=== PATIENT | female | born 1970 | race Caucasian/White ===

== ENCOUNTER 2018-06-28 15:00 | Outpatient (RCR) ==
--- NOTE | 2018-06-18 10:55 | RS.OPPTEV2 ---
Date of Note: 06/18/18 Visit #: 1 Date of Evaluation: 06/18/18 Payer Source: Insurance Surgery Performed?: No Treatment Diagnosis: cervicalgia History of Condition/Mechanism of Injury:: pt reports that neck pain began approx 1 month(approx 05/18/18) ago while cleaning a tanning bed at work and heard a "pop". Prior Level of Function.....Patient was independent with: ADL's, Self Care, Work /Vocation, Caregiving, Ambulation/Mobility, Community Integration/Access Functional Limitations: Sleep, Reaching, Carrying Current Subjective/complaints:: pt states that she is feeling better since finishing her steroids and beginning muscle relaxers, gabapentin and norco. States she continues to have radiating pain that is noticeable when meds are "wearing off". Treatment Side (optional): Right *Precautions: n/a Medical History Medical History: Hypertension, Arthritis Surgical History: Lumbar Spine Surgical History Comments:: lumbar fusion Smoking Status: Current some day smoker Diagnostic [facility]Imaging[facility] (have [facility] and requested Xray report) Hx Home Medications: gabapentin, "muscle relaxer", norco Patient's Goals: decrease neck pain Pain Assessment - Pain Description Pain Location: cervical pain radiating into RUE Pain Description: Radiating, Aching Current Pain Intensity: 4 Functional Outcome Measure Neck Disability Index: 12 - G Codes & Severity Modifier G Codes & Modifier: n/a Source of G Code score: n/a Observation - Observation Posture: Forward Head, Rounded Shoulders, Increased Thoracic Kyphosis Handedness: Right Gait - Gait Pattern General Gait Pattern Observation: No Deviations/Normal General Range of Motion: BUE WFL's. BLE WFL's Muscle Strength: LUE 5/5. RUE shld flex 4/5,elbow flex 4/5, ext 4+/5. BLE 5/5 - ROM Cervical Spine Range of Motion Limitations: Soft Tissue Tightness, Muscle Weakness, Pain Comments: Cervical ROM WFL's with pain with rotation to R as well as with ext. - Strength Cervical Extension: 4- Good- Cervical Flexion: 4- Good- Cervical Lateral Flexion: 3+ Fair+ Cervical Rotation: 3+ Fair+ - Special Tests Foraminal Distraction: Negative Foraminal Compression: Negative Left, Negative Right Palpation Palpation Findings: Tenderness, Trigger Point, Muscle Guarding Comments:: pt with tenderness and muscle guarding in cervical paraspinals, upper trap as well as trigger points in upper trap and proximal to the cervical thoracic junction. Sensation - Sensation Right Upper Extremity: Impaired Left Upper Extremity: Intact/Normal Right Lower Extremity: Intact/Normal Left Lower Extremity: Intact/Normal Comments: pt presents with pain and numbness and tingling in RUE from axilla to wrist in the C5/C6 distribution Balance - Sitting Balance Static Sitting Balance: Normal Dynamic Sitting Balance: Normal - Standing Balance Static Standing Balance: Normal Dynamic Standing Balance: Normal - Treatment Modality: Ultrasound Parameters/Method Applied: 1.5w/cm2 x 7 mins Treatment Area: R cervical paraspinal/upper trap Patient Position: Sitting - Heat/Cryotherapy Treatment: Hot Pack Comments:: cervical Interventions - Exercise/Activities/Manual Therapy Exercises/Activities: pt performed cervical retraction x 3, upper trap stretch x 1, corner stretch, scapular retraction x 5 reps Manual Therapy: NA HOME EXERCISE PROGRAM: pt given written HEP including: cervical retraction, upper trap stretch, scapular retraction, corner stretch - Charges Timed Code Treatment Minutes: 47 Total Treatment Time: 59 Procedures billed for this date of service:: eval low, ultrasound, hot pack EVALUATION COMPLEXITY LEVEL EVALUATION COMPLEXITY LEVEL: HISTORY: Low (HTN, OA), EXAM OF BODY SYSTEMS: Medium (pain, posture, strength, muscle tightness), CLINICAL PRESENTATION: Medium, CLINICAL DECISION MAKING: Low Assessment Assessment: pt presents with cervical pain radiating into RUE with decreased strength RUE, muscle tightness, trigger points and muscle guarding. Patient Education: Home Exercise Program, Education of Plan of Care Rehab Potential: Good Short Term Goals Goal #1: pt independent with initial HEP Goal to be met by: 07/09/18 Goal #2: pt rate pain < 4/10 with activity Goal to be met by: 07/09/18 Goal #3: Improve strength RUE 4+/5 Goal to be met by: 07/09/18 Goal #4: decreased tightness R upper trap to allow for decreased pain with ROM Goal to be met by: 07/09/18 Mcc Goals Goal #1: pt with no reports of radiating pain into RUE Goal to be met by: 07/30/18 Goal #2: pt report improved ability to perfrom job duties with less pain Goal to be met by: 07/30/18 Goal #3: Improvement on neck disability index to <10 Goal to be met by: 07/30/18 Plan - Treatment to be Provided Procedures: Therapeutic Exercises, Manual Therapy, Massage, Patient Education Modalities: Electrical Stimulation, Ultrasound/Phonophoresis, Class IV Laser, Cryotherapy, Hot Packs, Mechanical Traction - Treatment Plan Frequency: 2 X week Duration: 6 weeks ORDER # VISITS AND/OR THROUGH DATE: 07/30/18 - Treatment Code (1) Cervical pain Code(s): M54.2 - CERVICALGIA (2) Muscle tightness Code(s): M62.89 - OTHER SPECIFIED DISORDERS OF MUSCLE (3) Radicular pain in right arm Code(s): M79.2 - NEURALGIA AND NEURITIS, UNSPECIFIED
--- NOTE | 2018-06-20 16:09 | RS.OPPTDN ---
Subjective Date of Note: 06/20/18 Visit #: 2 Date of Evaluation: 06/18/18 Payer Source: Insurance Treatment Diagnosis: cervicalgia Current Subjective/complaints:: Patient reports she has less pain today, but numbness and tingling are worse and go down right UE to the dorsal surface of the right hand. Reports symptoms decreased following treatment. *Precautions: n/a Pain Assessment - Pain Description Pain Location: right traps, shoulder, and UE Current Pain Intensity: mild Other Comments regarding Pain:: Reports pain is low today, but numbness and tingling is worse today and radiates to the dorsal surface of the right hand. - Treatment Modality: Ultrasound Parameters/Method Applied: [id number] at 1.5w/cm2 to the right neck, traps, and shoulder joint. Patient Position: Sitting - Heat/Cryotherapy Treatment: Hot Pack ([id number] to the right neck and shoulder prior to US and EX. Patient in sitting. ) Interventions - Exercise/Activities/Manual Therapy Exercises/Activities: Assisted stretching into cervical lateral flexion. Scap retraction. Manually resisted isometric cervical retraction. Doorway stretch, 3 positions. AAROM of the right shoulder. Manually resisted right shoulder IR, ER, and empty can position. Total minutes of Exercise: 14mins Manual Therapy: NA HOME EXERCISE PROGRAM: pt given written HEP including: cervical retraction, upper trap stretch, scapular retraction, corner stretch. Isometric cervical retraction, added 3 position doorway stretch. - Charges Timed Code Treatment Minutes: 24mins Total Treatment Time: 44mins Procedures billed for this date of service:: HP, US, EX Assessment: Patient with increased radicular symptoms today, but reports feeling better after US. She will need to focus on postural correction exercises. Patient Education: Body/Joint mechanics, Home Exercise Program, Home Safety, Activity Modification Comments: Patient education of dx, postural mechanics, and HEP. 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 pain. Goal to be met by: 07/21/14 Plan PLAN OF CARE EXPIRES ON:: 07/30/18 ORDER # VISITS AND/OR THROUGH DATE: 07/30/18 PLAN: Continue modalities and progress postural correction exercises to reduce radicular symptoms and increase functional activity level.
--- NOTE | 2018-06-25 16:27 | RS.OPPTDN ---
Subjective Date of Note: 06/25/18 Visit #: 3 Date of Evaluation: 06/18/18 Payer Source: Insurance Treatment Diagnosis: cervicalgia Current Subjective/complaints:: Patient reports right neck and arm pain continues to bother her. She reports she has had difficulty with sleeping at night. Patient asks to try cervical traction as discussed during evaluation. *Precautions: n/a Pain Assessment - Pain Description Pain Location: right neck, upper trap, and down right UE to hand Pain Description: Aching Worst Pain Intensity: 8/10 Other Comments regarding Pain:: Following cervical traction patient reports aching pain in the right UE changed to numbness and tingling. - Treatment Modality: Ultrasound Parameters/Method Applied: [id number] at 1.5w/cm2 to the right cervical paraspinals and upper traps following mechanical traction. Patient Position: Sitting - Heat/Cryotherapy Treatment: Hot Pack ([id number] to the neck and right upper traps prior to cervical traction. Patient in sitting. ) - Traction Treatment Method: Mechanical, Intermittent, Cervical Patient Position: Supine Amount of Force Applied: 17-20# Hold Time: 35sec Rest Time: 5sec Duration of treatment: 20mins Interventions - Exercise/Activities/Manual Therapy Exercises/Activities: No exercise today. Patient continues HEP as instructed. Manual Therapy: NA HOME EXERCISE PROGRAM: pt given written HEP including: cervical retraction, upper trap stretch, scapular retraction, corner stretch. Isometric cervical retraction, added 3 position doorway stretch. - Charges Timed Code Treatment Minutes: 10mins Total Treatment Time: 45mins Procedures billed for this date of service:: HP, [place] mechanical, US Assessment: Patient reporting a change in right UE radicular symptoms following cervical traction. Patient Education: Education of diagnosis, Body/Joint mechanics, Home Safety, Activity Modification Comments: Advised patient to be prepared to us heat or ice this evening if radicular symptoms flair-up. Patient demonstrates compliance with HEP?: Yes Short Term Goals Goal #1: pt independent with initial HEP Goal to be met by: 07/09/18 Progress towards Goal:: Progressing Goal #2: pt rate pain < 4/10 with activity Goal to be met by: 07/09/18 Goal #3: Improve strength RUE 4+/5 Goal to be met by: 07/09/18 Goal #4: decreased tightness R upper trap to allow for decreased pain with ROM Goal to be met by: 07/09/18 Pickle Maker Goals Goal #1: pt with no reports of radiating pain into RUE Goal to be met by: 07/30/18 Goal #2: pt report improved ability to perfrom job duties with less pain Goal to be met by: 07/30/18 Goal #3: Improvement on neck disability index to <10 Goal to be met by: 07/30/18 Goal #4: Patient able to perform all ADL's and functional activties with min. pain. Goal to be met by: 07/21/14 Plan PLAN OF CARE EXPIRES ON:: 07/30/18 ORDER # VISITS AND/OR THROUGH DATE: 07/30/18 PLAN: Continue mechanical cervical traction to reduce pain and right UE radicular symptoms.
--- NOTE | 2018-06-28 16:34 | RS.OPPTDN ---
Subjective Date of Note: 06/28/18 Visit #: 4 Number of visits approved by Insurance: Pending Date of Evaluation: 06/18/18 Payer Source: Insurance Treatment Diagnosis: cervicalgia Current Subjective/complaints:: Reports the numbness and tingling in the R arm is constant. *Precautions: n/a Pain Assessment - Pain Description Pain Location: neck /R UE Pain Description: Radiating, Aching Current Pain Intensity: not rated - Heat/Cryotherapy Treatment: Hot Pack (20 mins. prior to ex,manual) Interventions - Exercise/Activities/Manual Therapy Exercises/Activities: Passive stretches to cervical in all directions,chin tucks /retraction,UT stretches. Total minutes of Exercise: 20 Manual Therapy: Occipital release ,manual intermittent cervical distraction in supine. Total minutes of Manual Therapy: 20 HOME EXERCISE PROGRAM: pt given written HEP including: cervical retraction, upper trap stretch, scapular retraction, corner stretch. Isometric cervical retraction, added 3 position doorway stretch. - Charges Timed Code Treatment Minutes: 40 Total Treatment Time: 60 Procedures billed for this date of service:: hp,ex,manual Assessment: Patient has good cervical flexibility in all directions ,but gets no relief from stretches or distraction today.She is compliant to HEP and attentive for her POC.She reports no change in the radiating after PT session today. Patient Education: Education of diagnosis, Body/Joint mechanics, Home Exercise Program, Home Safety, Activity Modification, Education of Plan of Care Patient demonstrates compliance with HEP?: Yes Short Term Goals Goal #1: pt independent with initial HEP Goal to be met by: 07/09/18 Progress towards Goal:: Progressing Goal #2: pt rate pain < 4/10 with activity Goal to be met by: 07/09/18 Progress towards Goal:: No Change Goal #3: Improve strength RUE 4+/5 Goal to be met by: 07/09/18 Progress towards Goal:: No Change Goal #4: decreased tightness R upper trap to allow for decreased pain with ROM Goal to be met by: 07/09/18 Progress towards Goal:: Progressing Mobile Application Developer Goals Goal #1: pt with no reports of radiating pain into RUE Goal to be met by: 07/30/18 Progress towards goal: No Change Goal #2: pt report improved ability to perfrom job duties with less pain Goal to be met by: 07/30/18 Goal #3: Improvement on neck disability index to <10 Goal to be met by: 07/30/18 Goal #4: Patient able to perform all ADL's and functional activties with min. pain. Goal to be met by: 07/21/14 Plan Dates of Mobile Application Developer Goals: 07/30/18 Expiration date of current Insurance Approval:: Pending PLAN: Cont . PT to reduce/eliminate neck and R UE pain.
--- NOTE | 2018-07-17 16:24 | RS.QUICKDC ---
Discharge from PT Date of Discharge: 07/17/18 Number of Visits: 4 Reason for Discharge: Patient attended 4 sessions and reported very little change in symptoms. Patient did not attend after that and has not called to reschedule.
== END 2018-07-17 23:59 ==
PROVIDERS: ATTEND Orthopaedic Surgery Orthopaedic Surgery of the Spine
DX: M54.2 Cervicalgia (principal); M62.89 Other specified disorders of muscle; M79.2 Neuralgia and neuritis, unspecified